=== PATIENT | female | born 1945 | race Caucasian/White ===

== ENCOUNTER → 2017-12-07 | Outpatient (REF) | payer MEDICARE ==
[2017-12-07 14:32] LABS: TOTAL PROTEIN 7.3 GM/DL (6.4-8.2)
[2017-12-09 09:05] LABS: FREE KAPPA LIGHT CHAINS SERUM 31.3 mg/L (3.3-19.4); FREE LAMBDA LIGHT CHAINS SERUM 26.4 mg/L (5.7-26.3); KAPPA/LAMBDA RATIO SERUM 1.19 (0.26-1.65)
[2017-12-10 15:01] LABS: ALBUMIN 4.17 GM/DL (3.29-5.55); ALBUMIN % 57.1 % (55.8-66.1); ALPHA-1-GLOBULIN % 4.9 % (2.9-4.9); ALPHA-2-GLOBULINS % 10.6 % (7.1-11.8); BETA-1-GLOBULINS % 6.8 % (4.7-7.2); BETA-2-GLOBULINS % 5.8 % (3.2-6.5); GAMMA GLOBULIN % 14.8 % (11.1-18.8)
[2017-12-10 15:02] LABS: ALPHA-1-GLOBULINS 0.36 GM/DL (0.17-0.41); ALPHA-2-GLOBULINS 0.77 GM/DL (0.42-0.99); BETA-2-GLOBULINS 0.42 GM/DL (0.19-0.55); GAMMA GLOBULINS 1.08 GM/DL (0.65-1.58)
[2017-12-12 14:54] LABS: UPEP INTERPRETATION NO M-SPIKE NOTED; URINE VOLUME RANDOM ML
== END ==
LOC: M LAB REF 13:22
DX: R80.9 Proteinuria, unspecified (principal)
CPT/HCPCS: 84165

== ENCOUNTER → 2017-12-12 | Outpatient (REF) | payer MEDICARE | LOC: M LABNEURO 11:36 | DX: G40.909 Epilepsy, unspecified, not intractable, without status epilepticus (principal) | CPT/HCPCS: 36415 ==

== ENCOUNTER 2020-12-27 16:29 | Emergency (ER) | payer MEDICARE ==
[~2020-12-27] VITALS: Ht 154.9 cm; Wt 106.2 kg
[2021-02-24] MEDS ORDERED: PROAAER10 INH (15:32)
[2021-02-24] MEDS ORDERED: D 50CAP2 PO (15:32)
[2021-02-24] MEDS ORDERED: LABE20TAB PO (15:32)
[2021-02-24] MEDS ORDERED: ASPI81TA26 PO (15:32)
[2021-02-24] MEDS ORDERED: CLOP75TA2 PO (15:32)
[2021-02-24] MEDS ORDERED: JANU50TA8 PO (15:32)
[2021-02-24] MEDS ORDERED: LEVE500T5 PO (15:32)
[2021-02-24] MEDS ORDERED: SYMB16INH INH (15:32)
[2021-02-24] MEDS ORDERED: ROSU10TA6 PO (15:32)
[2021-02-24] MEDS ORDERED: LOSA50TA28 PO (15:32)
[2021-02-24] MEDS ORDERED: MONT10TA97 PO (15:32)
[2021-02-24] MEDS ORDERED: MAGN400T33 PO (15:32)
[2021-02-24] MEDS ORDERED: ALBU0.63 NEB (15:32)
[2021-02-24] MEDS ORDERED: AMLO1TAB25 PO (15:32)
== END 2020-12-27 21:25 | disposition left against medical advice (07) ==
LOC: M ED 16:29
DX: Z53.29 Procedure and treatment not carried out because of patient's decision for other reasons (principal)

== ENCOUNTER → 2021-03-07 | Outpatient (REF) | payer OTHER ==
[~2021-03-07] MED LIST: ALBU0.63 NEB; AMLO1TAB25 PO; ASPI81TA26 PO; CLOP75TA2 PO; D 50CAP2 PO; JANU50TA8 PO; LABE20TAB PO; LEVE500T5 PO; LOSA50TA88 PO; MAGN400T3 PO; MONT10TA10 PO; PROAAER10 INH; ROSU10TA6 PO; SYMB16INH INH
== END ==
LOC: M LAB REF 17:07
PROVIDERS: ATTEND Internal Medicine Nephrology
DX: E83.42 Hypomagnesemia (principal); N18.31 Chronic kidney disease, stage 3a

== ENCOUNTER → 2021-08-09 | Outpatient (REF) | payer OTHER ==
[~2021-08-09] MED LIST changes: +LOSA50TA28 PO; -LOSA50TA88 PO; -MAGN400T3 PO; +MAGN400T33 PO; -MONT10TA10 PO; +MONT10TA97 PO
[2021-08-09 18:10] LABS: PERCENT SATURATION 11.3 % (13.2-45.0)
== END ==
LOC: M LAB REF 16:58
PROVIDERS: ATTEND Nurse Practitioner Family
DX: N18.31 Chronic kidney disease, stage 3a (principal); E61.1 Iron deficiency

== ENCOUNTER 2021-08-25 10:56 | Outpatient (CLI) | payer OTHER ==
[~2021-08-25] VITALS: Ht 154.9 cm; Wt 103.0 kg
[~2021-08-25 10:56] MED LIST changes: +ALBUTEROL SULFATE 2.5 MG/0.5 ML INH NEB SOLN INH PRN; +EPINEPHrine INJ 1 MG/ML 1ML AMP IM PRN; +diphenhydrAMINE 50MG/ML VIAL (J1200) IV PRN; +methylPREDNISolone 125MG 2ML VIAL IV PRN
[2021-08-25] MEDS ORDERED: FERRIC CARBOXYMALTOSE INJ 750 MG, VIAL MATE ADAPTER 1 EACH in NS 250 ML IV ONE (11:00)
[2021-08-25] MEDS ORDERED: NS 1,000 ML IV SCH (11:00)
[2021-08-25 11:26] VITALS: BP 134/60
[2021-08-25 12:54] VITALS: BP 160/84
== END 2021-08-25 13:10 | disposition home or self-care (01) ==
LOC: M INFU 10:56
PROVIDERS: ATTEND Internal Medicine Nephrology
DX: E61.1 Iron deficiency (principal); Z88.6 Allergy status to analgesic agent; Z88.8 Allergy status to other drugs, medicaments and biological substances
CPT/HCPCS: 96365; J1439